=== PATIENT | female | born 1995 | race African-American/Black ===

== ENCOUNTER 2018-06-18 08:17 | Emergency (ER) | payer MEDICAID, MEDICARE, OTHER ==
[~2018-06-18] VITALS: Ht 165.1 cm; Wt 68.0 kg
[2018-06-18] MEDS ORDERED: IBUPROFEN 600MG TABLET PO ONE (10:15)
[2018-06-18 12:35] VITALS: BP 112/72
== END 2018-06-18 12:37 | disposition home or self-care (01) ==
LOC: ER 08:17
DX: S00.03XA Contusion of scalp, initial encounter (principal); W22.8XXA Striking against or struck by other objects, initial encounter; M25.561 Pain in right knee; Y93.E1 Activity, personal bathing and showering; Y92.091 Bathroom in other non-institutional residence as the place of occurrence of the external cause
CPT/HCPCS: 70450; 73562; 81025; 99284